=== PATIENT | female | born 1940 | race Two or more races ===

== ENCOUNTER 2020-09-19 12:42 | Inpatient (IN) | payer OTHER ==
[~2020-09-19] VITALS: Ht 157.5 cm; Wt 60.0 kg
[2020-09-19] VITALS (29 sets, daily range): BP systolic 91–158; BP diastolic 35–101
[2020-09-19] MEDS ORDERED: ETOMIDATE (2MG/ML) 20ML VIAL IV ONE ×2 (12:54)
[2020-09-19] MEDS ORDERED: SUCCINYLCHOLINE CHLORIDE 20 MG/ML 10ML VIAL IV ONE ×2 (12:55)
[2020-09-19] MEDS ORDERED: NOREPINEPHRINE 8 MG/250ML KIT 250 ML IV ONE (12:59)
[2020-09-19] MEDS ORDERED: NOREPINEPHRINE 8 MG/250ML KIT 250 ML IV SCH (12:59)
[2020-09-19] MEDS ORDERED: SODIUM CHLORIDE 0.9% 1,000 ML IVB ONE (13:00)
[2020-09-19] MEDS: MIDAZOLAM DRIP 50 mg/50mL 50 ML IV SCH (13:03)
[2020-09-19] MEDS ORDERED: MIDAZOLAM DRIP 50 mg/50mL 50 ML IV ONE (13:03)
[2020-09-19] MEDS ORDERED: levoFLOXacin 500MG 100 ML IV ONE ×2 (13:07)
[2020-09-19] MEDS: NOREPINEPHRINE 8 MG/250ML KIT 250 ML IV SCH ×2 (13:15→20:24)
[2020-09-19 14:03] LABS: Hematocrit 33.5 % (36.0-46.0); Hemoglobin 11.2 g/dL (12.2-16.2); Mean Corpuscular Hemoglobin 31.4 pg (28.0-32.0); Mean Corpuscular Hgb Conc. 33.3 g/dL (32.0-36.0); Mean Corpuscular Volume 94.2 fL (80.0-100.0); Red Blood Cells 3.56 10^6/uL (4.0-5.20); Red Cell Distribution Width 13.8 % (11.8-14.3)
[2020-09-19 14:06] LABS: Basophils % (manual) 0 (0.0-2.0); Blast Cells 0; Eosinophils % (manual) 0 (0-7); Promyelocytes % 0; Reactive Lymphocytes 0
[2020-09-19 14:11] LABS: Albumin 2.3 g/dL (3.4-5.0); Calcium 7.8 mg/dL (8.5-10.1); Magnesium 3.8 mg/dL (1.6-2.6); Potassium 3.9 mmol/L (3.5-5.1)
[2020-09-19 14:17] LABS: Urine Bacteria FEW /hpf (None Seen); Urine Blood TRACE /uL (Negative); Urine Hyaline Cast MANY /lpf (0 - 2); Urine Mucus FEW (None Seen); Urine Specific Gravity 1.018 (1.001-1.035); Urine WBC 13 /hpf (0 - 5)
[2020-09-19] MEDS ORDERED: SODIUM BICARBONATE 8.4% INJ 50ML SYRINGE ONE (14:36)
[2020-09-19] MEDS ORDERED: SODIUM BICARBONATE 50ML VIAL 50 ML in D5W/SOD CHL 0.45% 1,000 ML IV SCH (14:45)
[2020-09-19] MEDS ORDERED: SODIUM BICARBONATE 8.4 % INJ 50ML VIAL IV ONE ×2 (14:45→23:00)
[2020-09-19 15:04] LABS: Band Neutrophils % (manual) 33; Lymphocytes % (manual) 5 (10.0-50.0); Metamyelocytes % 4; Monocytes % (manual) 3 (0-12); Myelocytes % 2
[2020-09-19] MEDS ORDERED: MORPHINE SULF INJ 2 MG/ML SYRINGE 1ML IV PRN (15:30)
[2020-09-19] MEDS ORDERED: NITROGLYCERIN 0.4 MG SL TAB SL PRN (15:30)
[2020-09-19] MEDS ORDERED: VANCOMYCIN PER PHARMACY 0 MG IV SCH (15:30)
[2020-09-19 16:02] LABS: BUN/Creatinine Ratio 19.2; Bilirubin, Total 0.7 mg/dL (0.2-1.0); Total Protein 4.7 g/dL (6.4-8.2)
[2020-09-19] MEDS ORDERED: VANCOMYCIN 750mg/250ml 250 ML IV ONE ×2 (16:15→22:00)
[2020-09-19] MEDS ORDERED: PIPERACILLIN-TAZOB 3.375GM 100 ML IV SCH (18:00)
[2020-09-19] MEDS: VASOPRESSIN 50 UNITS in D5W 5% 247.5 ML IV SCH (18:45)
[2020-09-19] MEDS: PHENYLEPHRINE IV 250 ML IV SCH (18:45)
[2020-09-19 18:57] LABS: Hematocrit 41.3 % (36.0-46.0); Hemoglobin 14.1 g/dL (12.2-16.2); Mean Corpuscular Hemoglobin 32.1 pg (28.0-32.0); Mean Corpuscular Hgb Conc. 34.2 g/dL (32.0-36.0); Mean Corpuscular Volume 93.9 fL (80.0-100.0); Red Cell Distribution Width 13.9 % (11.8-14.3); White Blood Cell 28.7 10^3/uL (4.4-10.8)
[2020-09-19 19:03] LABS: Basophils % (manual) 0 (0.0-2.0); Blast Cells 0; Eosinophils % (manual) 0 (0-7); Promyelocytes % 0; Reactive Lymphocytes 0
[2020-09-19 19:11] LABS: INR 1.95 (0.9-1.15)
[2020-09-19 19:15] LABS: Calcium 7.5 mg/dL (8.5-10.1); Magnesium 3.1 mg/dL (1.6-2.6); Potassium 3.2 mmol/L (3.5-5.1)
[2020-09-19 19:17] LABS: BUN/Creatinine Ratio 18.9
[2020-09-19] MEDS ORDERED: DEXTROSE (50%) 50ML SYRG IV PRN ×2 (19:30→20:15)
[2020-09-19 19:35] LABS: Band Neutrophils % (manual) 27; Lymphocytes % (manual) 4 (10.0-50.0); Metamyelocytes % 4; Monocytes % (manual) 6 (0-12); Myelocytes % 1
[2020-09-19] MEDS: SODIUM BICARBONATE 50ML VIAL 100 ML in D5W/SOD CHL 0.45% 1,000 ML IV SCH (20:23)
[2020-09-19] MEDS: ACCU-CHEK COMFORT CURVE STRIP VI SCH ×3 (20:44→23:42)
[2020-09-19] MEDS: InsuLIN R (HUMAN) 100 UNITS in SODIUM CHL 0.9% 99 ML IV SCH ×2 (20:59→22:03)
[2020-09-19] MEDS: POTASSIUM CHL 20MEQ/100ML 100 ML IV SCH ×2 (21:26→23:18)
[2020-09-19 22:06] LABS: Hematocrit 38.6 % (36.0-46.0); Hemoglobin 13.1 g/dL (12.2-16.2)
[2020-09-19] MEDS: fentaNYL Drip 2500mCg/250mlNS 250 ML IV SCH (22:11)
[2020-09-19 22:28] LABS: Lactic Acid w/Reflex 10.8 mmol/L (0.4-2.0)
[2020-09-19] MEDS: PIPERACILLIN-TAZOB 2.25GM 50 ML IV SCH (23:43)
[2020-09-20] VITALS (105 sets, daily range): BP systolic 63–156; BP diastolic 35–73
[2020-09-20] MEDS ORDERED: ACCU-CHEK COMFORT CURVE STRIP VI SCH
[2020-09-20] MEDS ORDERED: InsuLIN REG 1unit/0.01ml Soln (100units/ml) SC SCH
[2020-09-20] MEDS ORDERED: SODIUM CHLORIDE 0.9% 1,000 ML IV ONE (00:30)
[2020-09-20 00:47] LABS: Albumin 2.2 g/dL (3.4-5.0); Calcium 6.5 mg/dL (8.5-10.1); Potassium 3.6 mmol/L (3.5-5.1)
[2020-09-20 01:00] LABS: Bilirubin, Total 1.1 mg/dL (0.2-1.0); Total Protein 4.5 g/dL (6.4-8.2)
[2020-09-20 01:14] LABS: BUN/Creatinine Ratio 18.6
[2020-09-20] MEDS: ACCU-CHEK COMFORT CURVE STRIP VI SCH ×7 (01:24→23:51)
[2020-09-20] MEDS: InsuLIN R (HUMAN) 100 UNITS in SODIUM CHL 0.9% 99 ML IV SCH (01:29)
[2020-09-20 02:37] LABS: Lactic Acid w/Reflex 7.3 mmol/L (0.4-2.0)
[2020-09-20] MEDS ORDERED: DEXTROSE (50%) 50ML SYRG IV PRN (03:00)
[2020-09-20] MEDS: PHENYLEPHRINE IV 250 ML IV SCH ×3 (03:05→19:45)
[2020-09-20] MEDS ORDERED: SODIUM BICARBONATE 8.4 % INJ 50ML VIAL IV ONE ×3 (03:30→12:15)
[2020-09-20] MEDS: InsuLIN REG 1unit/0.01ml Soln (100units/ml) SC SCH ×6 (03:48→23:56)
[2020-09-20] MEDS: NOREPINEPHRINE 8 MG/250ML KIT 250 ML IV SCH ×2 (03:50→21:52)
[2020-09-20 04:06] LABS: Hematocrit 36.7 % (36.0-46.0); Hemoglobin 12.6 g/dL (12.2-16.2); Mean Corpuscular Hemoglobin 31.6 pg (28.0-32.0); Mean Corpuscular Hgb Conc. 34.3 g/dL (32.0-36.0); Mean Corpuscular Volume 92.3 fL (80.0-100.0); Red Blood Cells 3.98 10^6/uL (4.0-5.20); Red Cell Distribution Width 13.7 % (11.8-14.3); White Blood Cell 29.8 10^3/uL (4.4-10.8)
[2020-09-20 04:13] LABS: Basophils % (manual) 0 (0.0-2.0); Blast Cells 0; Eosinophils % (manual) 0 (0-7); Promyelocytes % 0; Reactive Lymphocytes 0
[2020-09-20 04:21] LABS: Albumin 2.2 g/dL (3.4-5.0); Calcium 6.4 mg/dL (8.5-10.1); Potassium 3.6 mmol/L (3.5-5.1)
[2020-09-20 04:40] LABS: BUN/Creatinine Ratio 20.9; Bilirubin, Total 1.4 mg/dL (0.2-1.0); Total Protein 4.6 g/dL (6.4-8.2)
[2020-09-20 05:24] LABS: Band Neutrophils % (manual) 55; Lymphocytes % (manual) 5 (10.0-50.0); Metamyelocytes % 5; Monocytes % (manual) 8 (0-12); Myelocytes % 3
[2020-09-20] MEDS: PIPERACILLIN-TAZOB 2.25GM 50 ML IV SCH ×4 (06:16→23:51)
[2020-09-20] MEDS: MIDAZOLAM DRIP 50 mg/50mL 50 ML IV SCH (06:17)
[2020-09-20 07:04] LABS: Lactic Acid w/Reflex 9.3 mmol/L (0.4-2.0)
[2020-09-20] MEDS: PANTOPRAZOLE 40 MG/10 ML VIAL INJ IV SCH ×2 (09:49→21:52)
[2020-09-20] MEDS: SODIUM BICARBONATE 50ML VIAL 100 ML in D5W/SOD CHL 0.45% 1,000 ML IV SCH (09:50)
[2020-09-20] MEDS ORDERED: PANTOPRAZOLE 40 MG/10 ML VIAL INJ IV SCH (10:00)
[2020-09-20] MEDS ORDERED: ENOXAPARIN SOD 40 MG/0.4 ML SYRINGE SC SCH (10:00)
[2020-09-20] MEDS ORDERED: BUMETANIDE 2.5mg/10ml (0.25 mg/ml) INJ IV ONE (12:45)
[2020-09-20 13:25] LABS: Hematocrit 36.8 % (36.0-46.0); Hemoglobin 12.5 g/dL (12.2-16.2)
[2020-09-20 13:35] LABS: Urine Amorphous Crystal MOD /hpf (None Seen); Urine Bacteria FEW /hpf (None Seen); Urine Blood 3+ /uL (Negative); Urine Specific Gravity 1.009 (1.001-1.035); Urine WBC 2 /hpf (0 - 5)
[2020-09-20] MEDS ORDERED: SODIUM BICARBONATE 8.4% INJ 50ML SYRINGE IV ONE (13:38)
[2020-09-20] MEDS ORDERED: DEXTROSE (50%) 50ML SYRG IV ONE (13:38)
[2020-09-20] MEDS ORDERED: EPINEPHrine HCL 1 MG/10 ML SYRG IV ONE (13:38)
[2020-09-20 13:51] LABS: Lactic Acid w/Reflex 11.9 mmol/L (0.4-2.0)
[2020-09-20 13:57] LABS: Creatinine, Urine 24 mg/dL (30.0-125.0); Sodium Urine 127 mmol/L (40-220)
[2020-09-20 18:31] LABS: Lactic Acid w/Reflex 13.2 mmol/L (0.4-2.0)
[2020-09-20] MEDS: VASOPRESSIN 50 UNITS in D5W 5% 247.5 ML IV SCH (18:45)
[2020-09-20] MEDS: fentaNYL Drip 2500mCg/250mlNS 250 ML IV SCH (19:30)
[2020-09-20 22:31] LABS: Hemoglobin 11.1 g/dL (12.2-16.2)
[2020-09-20 22:33] LABS: Hematocrit 33.6 % (36.0-46.0)
[2020-09-20] MEDS ORDERED: DIGOXIN (250MCG/ML) 2 ML AMPULE ONE (23:38)
[2020-09-20] MEDS ORDERED: DIGOXIN (250MCG/ML) 2 ML AMPULE IV ONE (23:45)
[2020-09-20] MEDS ORDERED: SODIUM CHLORIDE 0.9% 500 ML IV ONE (23:45)
[2020-09-21] VITALS (51 sets, daily range): BP systolic 76–155; BP diastolic 44–116
[2020-09-21] MEDS: SODIUM BICARBONATE 50ML VIAL 100 ML in D5W/SOD CHL 0.45% 1,000 ML IV SCH (03:41)
[2020-09-21] MEDS: InsuLIN REG 1unit/0.01ml Soln (100units/ml) SC SCH ×2 (04:00→08:00)
[2020-09-21] MEDS: PHENYLEPHRINE IV 250 ML IV SCH (04:05)
[2020-09-21] MEDS: ACCU-CHEK COMFORT CURVE STRIP VI SCH ×2 (04:11→08:21)
[2020-09-21 04:15] LABS: Hematocrit 33.8 % (36.0-46.0); Hemoglobin 10.9 g/dL (12.2-16.2); Mean Corpuscular Hemoglobin 30.9 pg (28.0-32.0); Mean Corpuscular Hgb Conc. 32.4 g/dL (32.0-36.0); Mean Corpuscular Volume 95.5 fL (80.0-100.0); Red Blood Cells 3.54 10^6/uL (4.0-5.20); Red Cell Distribution Width 14.4 % (11.8-14.3)
[2020-09-21 04:26] LABS: Basophils % (manual) 0 (0.0-2.0); Blast Cells 0; Eosinophils % (manual) 0 (0-7); Promyelocytes % 0; Reactive Lymphocytes 0
[2020-09-21 04:32] LABS: Albumin 1.7 g/dL (3.4-5.0); Lactic Acid w/Reflex 14.2 mmol/L (0.4-2.0); Potassium 4.5 mmol/L (3.5-5.1)
[2020-09-21 04:53] LABS: Band Neutrophils % (manual) 51; Lymphocytes % (manual) 10 (10.0-50.0); Metamyelocytes % 1; Monocytes % (manual) 11 (0-12); Myelocytes % 5
[2020-09-21 04:58] LABS: BUN/Creatinine Ratio 14.4; Bilirubin, Total 2.6 mg/dL (0.2-1.0); Phosphorus 7.6 mg/dL (2.5-4.90); Total Protein 3.7 g/dL (6.4-8.2)
[2020-09-21] MEDS: PIPERACILLIN-TAZOB 2.25GM 50 ML IV SCH (05:44)
[2020-09-21] MEDS ORDERED: BUMETANIDE 2.5mg/10ml (0.25 mg/ml) INJ IV ONE (08:30)
[2020-09-21] MEDS ORDERED: LORazepam 2MG/ML-1ML VIAL IV PRN (11:00)
[2020-09-21] MEDS ORDERED: MORPHINE SULF INJ 2 MG/ML SYRINGE 1ML IV PRN (11:00)
[2020-09-21] MEDS ORDERED: ATROPINE SULF 1 MG/10ml SYR IV ONE (14:33)
[2020-09-21] MEDS ORDERED: VANCOMYCIN 750mg/250ml 250 ML IV ONE (15:00)
== END 2020-09-21 11:32 | DRG 871 ==
LOC: ER 12:42 → EDBD 12:42 → ICU WEST 15:50 → UNDOADMIN 15:50 → TELE 15:59 → ER 09-21 11:32 → UNDODISIN 09-21 14:34
PROVIDERS: ADMIT Internal Medicine; ATTEND Internal Medicine
PROC: 0BH17EZ Insertion of Endotracheal Airway into Trachea, Via Natural or Artificial Opening (ICD-10-PCS; principal; 2020-09-19)
PROC: 5A1945Z Respiratory Ventilation, 24-96 Consecutive Hours (ICD-10-PCS; 2020-09-19)
PROC: 06HY33Z Insertion of Infusion Device into Lower Vein, Percutaneous Approach (ICD-10-PCS; 2020-09-19)
PROC: 5A12012 Performance of Cardiac Output, Single, Manual (ICD-10-PCS; 2020-09-19)
DX: A41.9 Sepsis, unspecified organism (principal); E11.10 Type 2 diabetes mellitus with ketoacidosis without coma; G92 Toxic encephalopathy; I50.21 Acute systolic (congestive) heart failure; J18.9 Pneumonia, unspecified organism; J96.01 Acute respiratory failure with hypoxia; K72.00 Acute and subacute hepatic failure without coma; R65.21 Severe sepsis with septic shock; N17.0 Acute kidney failure with tubular necrosis; I13.0 Hypertensive heart and chronic kidney disease with heart failure and stage 1 through stage 4 chronic kidney disease, or unspecified chronic kidney disease; I31.3 Pericardial effusion (noninflammatory); I46.9 Cardiac arrest, cause unspecified; D64.9 Anemia, unspecified; E11.22 Type 2 diabetes mellitus with diabetic chronic kidney disease; E86.1 Hypovolemia; G30.9 Alzheimer's disease, unspecified; F02.80 Dementia in other diseases classified elsewhere, unspecified severity, without behavioral disturbance, psychotic disturbance, mood disturbance, and anxiety; I34.0 Nonrheumatic mitral (valve) insufficiency; K75.89 Other specified inflammatory liver diseases; N18.9 Chronic kidney disease, unspecified; Z20.822 Contact with and (suspected) exposure to COVID-19; Z66 Do not resuscitate; Z51.5 Encounter for palliative care; Z87.891 Personal history of nicotine dependence
CPT/HCPCS: 31500; 36415; 36556; 36600; 51702; 70450; 71045; 80048; 80053; 80202; 81001; 82550; 82570; 82728; 82805; 82962; 83605; 83735; 84100; 84300; 84443; 84484; 85007; 85014; 85018; 85027; 85379; 85610; 86141; 87040; 87045; 87070; 87081; 87086; 87205; 87426; 87427; 87493; 87804; 92950; 93005; 93306; 94002; 94003; 96365; 96366; 96367; 96368; 96375; 96376; 99291; C9113; G0378; J0330; J1815; J1956; J2250; J2543; J3480; J7060